=== PATIENT | female | born 1960 | race Caucasian/White ===

== ENCOUNTER 2022-12-23 14:59 | Inpatient (IN) | payer OTHER ==
[2022-12-23 15:45] LABS: #Basophils 0.1 thou/uL (0.0-0.2); #Eosinphils 0.3 thou/uL (0.0-0.7); #Monocytes 1.5 thou/uL (0.11-0.59); #Neutrophils 10.4 thou/uL (1.40-6.50); %Basophils 0.5 % (0.0-1.0); %Eosinophils 2.2 % (0.0-10.0); %Lymphocytes 17.2 % (21.0-51.0); %Monocytes 9.9 % (0.0-10.0); %Neutrophils 69.5 % (42.0-75.0); Hematocrit 49.5 % (36.0-47.0); Hemoglobin 15.6 g/dL (12.0-16.0); Mean Corpuscular HGB CONC 31.5 g/dL (32.0-36.0); Mean Corpuscular Hemoglobin 30.2 pg (27.0-31.0); Mean Corpuscular Volume 95.7 fl (78.0-98.0); Mean Platelet Volume 10.2 fL (7.4-10.4); Platelet Count 295 10x3/uL (130-400); RBC Distribution Width 14.6 % (11.5-14.5); Red Blood Cell (RBC) Count 5.17 mill/uL (4.20-5.40)
[2022-12-23] MEDS ORDERED: methylPREDNISolone Sod Succ/PF 125 MG/2 ML VIAL ONE (15:59)
[2022-12-23] MEDS ORDERED: cefTRIAXone (ROCEPHIN) 2 GM VIAL ONE (15:59)
[2022-12-23] MEDS ORDERED: Azithromycin 500 MG VIAL ONE (15:59)
[2022-12-23] MEDS ORDERED: Aspirin Chewable 81 MG TAB ONE (15:59)
[2022-12-23] MEDS ORDERED: Ipratropium/Albuterol 3 ML NEB ONE (15:59)
[2022-12-23 16:13] LABS: ALT (SGPT) 19 U/L (8-55); AST (SGOT) 19 U/L (5-34); Albumin 3.7 g/dL (3.5-5.0); Alkaline Phosphatase 97 U/L (40-110); Anion Gap 10 mmol/L (10-20); BUN (Urea Nitrogen) 12 mg/dL (9.8-20.1); Bilirubin, Total Less than 0.2 mg/dL (0.2-1.2); Calc. Creatinine Clearance 0 mL/min (70-130); Calcium 9.3 mg/dL (7.8-10.44); Carbon Dioxide 32 mmol/L (22-29); Chloride 99 mmol/L (98-107); Estimated GFR 81; Globulin 2.3 g/dL (2.4-3.5); Glucose 203 mg/dL (70-105); Potassium 4.2 mmol/L (3.5-5.1); Sodium 137 mmol/L (136-145)
[2022-12-23] MEDS ORDERED: Magnesium 2 GM/50 ML BAG (IN WATER) ONE ×3 (16:23→16:28)
[2022-12-23] MEDS ORDERED: Ondansetron ODT 4 MG TAB PO PRN (17:14)
[2022-12-23] MEDS ORDERED: Ondansetron PF 4 MG/2 ML Vial IVP PRN (17:14)
[2022-12-23] MEDS ORDERED: Acetaminophen 325 MG TAB PO PRN (17:14)
[2022-12-23] MEDS ORDERED: Dextrose 50% Abboject 50 ML SYRINGE SLOW IVP PRN (17:16)
[2022-12-23] MEDS ORDERED: Dextrose 5% in Water 1,000 ML IV PRN (17:16)
[2022-12-23] MEDS ORDERED: Glucagon 1 MG/ML KIT IM PRN (17:16)
[2022-12-23 17:56] LABS: Hemoglobin A1c 8.5 % (4.0-6.0)
[2022-12-23] MEDS: Ipratropium/Albuterol 3 ML NEB NEB SCH (19:40)
[2022-12-23 20:24] LABS: Troponin I Less than 0.010 ng/mL (< 0.028)
[2022-12-23 22:08] LABS: Troponin I Less than 0.010 ng/mL (< 0.028)
[2022-12-23] MEDS: Nicotine 14 MG PATCH TD SCH (22:58)
[2022-12-23] MEDS: HumaLOG 300 UNITS/3 ML VIAL SC PRN (22:59)
[2022-12-24] MEDS: methylPREDNISolone Sod Succ 40 MG VIAL IVP SCH ×4 (00:08→18:31)
[2022-12-24 00:16] VITALS: BMI 39.4
[2022-12-24] MEDS: Ipratropium/Albuterol 3 ML NEB NEB SCH ×4 (00:29→19:26)
[2022-12-24] MEDS: HumaLOG 300 UNITS/3 ML VIAL SC PRN ×3 (06:11→16:47)
[2022-12-24] MEDS ORDERED: Ipratropium/Albuterol 3 ML NEB ONE (07:18)
[2022-12-24 07:58] LABS: ALT (SGPT) 21 U/L (8-55); AST (SGOT) 17 U/L (5-34); Albumin 3.8 g/dL (3.5-5.0); Alkaline Phosphatase 90 U/L (40-110); Anion Gap 11 mmol/L (10-20); BUN (Urea Nitrogen) 12 mg/dL (9.8-20.1); Bilirubin, Total 0.3 mg/dL (0.2-1.2); Calc. Creatinine Clearance 131 mL/min (70-130); Calcium 9.2 mg/dL (7.8-10.44); Carbon Dioxide 26 mmol/L (22-29); Cardiac Risk 2.9 (Less than 4.5); Chloride 102 mmol/L (98-107); Cholesterol 152 mg/dl (< 200 Desired); Estimated GFR 91; Globulin 3.1 g/dL (2.4-3.5); Glucose 256 mg/dL (70-105); HDL Cholesterol 52 mg/dL (>60 Neg Risk); LDL Cholesterol, Calculated 89 mg/dL; Potassium 4.4 mmol/L (3.5-5.1); Protein, Total 6.9 g/dL (6.0-8.3); Sodium 135 mmol/L (136-145); Triglycerides 56 mg/dL (Less than 150)
[2022-12-24] MEDS ORDERED: Non-Formulary Item 1 EACH (Hydroxyzine Pamoate [Hydroxyzine Pamoate] 50 MG Capsule) PO SCH (09:00)
[2022-12-24] MEDS: Famotidine 20 MG TAB PO SCH ×2 (09:10→22:00)
[2022-12-24] MEDS: Gabapentin 300 MG CAP PO SCH ×3 (09:10→21:58)
[2022-12-24] MEDS: Empagliflozin 10 MG TAB PO SCH (09:11)
[2022-12-24] MEDS: Losartan 25 MG TAB PO SCH (09:11)
[2022-12-24] MEDS: Sertraline 25 MG TAB PO SCH ×2 (09:11→21:59)
[2022-12-24] MEDS: glipiZIDE 10 MG TAB PO SCH ×2 (09:11→21:59)
[2022-12-24] MEDS: Meloxicam 15 MG TAB PO SCH (09:11)
[2022-12-24] MEDS: hydrOXYzine Pamoate 25 mg Capsule PO SCH (09:11)
[2022-12-24] MEDS: Nicotine 14 MG PATCH TD SCH (16:47)
[2022-12-24] MEDS ORDERED: Azithromycin 500 MG in Sodium Chloride 0.9% 250 ML 250 ML IVPB SCH (17:00)
[2022-12-24] MEDS ORDERED: Atorvastatin Calcium 40 MG TAB PO SCH (21:00)
[2022-12-24] MEDS ORDERED: Non-Formulary Item 1 EACH (Olanzapine [Olanzapine] 15 MG Tablet) PO SCH (21:00)
[2022-12-24] MEDS ORDERED: OLANZapine 5 MG TAB PO SCH (21:00)
[2022-12-25] MEDS: Ipratropium/Albuterol 3 ML NEB NEB SCH ×3 (00:29→13:47)
[2022-12-25] MEDS: methylPREDNISolone Sod Succ 40 MG VIAL IVP SCH ×2 (00:43→06:24)
[2022-12-25] MEDS: HumaLOG 300 UNITS/3 ML VIAL SC PRN ×2 (00:48→12:59)
[2022-12-25 08:03] LABS: ALT (SGPT) 23 U/L (8-55); AST (SGOT) 25 U/L (5-34); Albumin 3.8 g/dL (3.5-5.0); Alkaline Phosphatase 94 U/L (40-110); Anion Gap 15 mmol/L (10-20); BUN (Urea Nitrogen) 19 mg/dL (9.8-20.1); Bilirubin, Total 0.3 mg/dL (0.2-1.2); Calc. Creatinine Clearance 112 mL/min (70-130); Calcium 9.9 mg/dL (7.8-10.44); Carbon Dioxide 23 mmol/L (22-29); Chloride 103 mmol/L (98-107); Estimated GFR 75; Globulin 3.4 g/dL (2.4-3.5); Glucose 318 mg/dL (70-105); Potassium 4.6 mmol/L (3.5-5.1); Protein, Total 7.2 g/dL (6.0-8.3); Sodium 136 mmol/L (136-145)
[2022-12-25] MEDS: hydrOXYzine Pamoate 25 mg Capsule PO SCH (08:50)
[2022-12-25] MEDS: Losartan 25 MG TAB PO SCH (08:50)
[2022-12-25] MEDS: Empagliflozin 10 MG TAB PO SCH (08:50)
[2022-12-25] MEDS: Famotidine 20 MG TAB PO SCH (08:50)
[2022-12-25] MEDS: glipiZIDE 10 MG TAB PO SCH (08:50)
[2022-12-25] MEDS: Meloxicam 15 MG TAB PO SCH (08:51)
[2022-12-25] MEDS: Sertraline 25 MG TAB PO SCH (08:51)
[2022-12-25] MEDS: Gabapentin 300 MG CAP PO SCH (08:52)
[2022-12-25] MEDS ORDERED: Azithromycin 250 MG TAB PO SCH (09:00)
[2022-12-25 11:48] VITALS: BP 151/84; TEMP 97.4
[2022-12-26] MEDS ORDERED: predniSONE 50 MG TAB PO SCH (08:00)
== END 2022-12-25 14:00 | disposition home or self-care (01) | DRG 189 ==
LOC: ERS 14:59 → T4-B 16:58 → OBSVTOIN 12-24 16:39
PROVIDERS: ADMIT Family Medicine; ATTEND Emergency Medicine
DX: J96.21 Acute and chronic respiratory failure with hypoxia (principal); J44.1 Chronic obstructive pulmonary disease with (acute) exacerbation; J44.9 Chronic obstructive pulmonary disease, unspecified; F17.210 Nicotine dependence, cigarettes, uncomplicated; E11.40 Type 2 diabetes mellitus with diabetic neuropathy, unspecified; D72.829 Elevated white blood cell count, unspecified; I10 Essential (primary) hypertension; E78.5 Hyperlipidemia, unspecified; Z88.5 Allergy status to narcotic agent; Z90.710 Acquired absence of both cervix and uterus; Z99.81 Dependence on supplemental oxygen; Z90.89 Acquired absence of other organs; Z98.51 Tubal ligation status; Z71.6 Tobacco abuse counseling
CPT/HCPCS: 36415; 36416; 71045; 80053; 80061; 83036; 83880; 84484; 85025; 87040; 87070; 87205; 93005; 94640; 96365; 96367; 96375; J0456; J0696; J1815; J2920; J2930; J3475; J7050; J7620; Q0177

== ENCOUNTER 2023-04-24 08:55 | Outpatient (CLI) | payer MEDICARE, OTHER | END 2023-04-24 08:56 | disposition home or self-care (01) | LOC: RAD 08:55 | PROVIDERS: ATTEND Internal Medicine Critical Care Medicine | DX: R06.00 Dyspnea, unspecified (principal); I51.7 Cardiomegaly | CPT/HCPCS: 71046 ==